=== PATIENT | female | born 1985 | race Caucasian/White ===

== ENCOUNTER 2017-03-28 08:21 | Inpatient (IN) | payer MEDICAID ==
[~2017-03-28] VITALS: Ht 157.5 cm; Wt 81.9 kg
[2017-03-28] MEDS ORDERED: LACTATED RINGERS 1,000 ML IV SCH ×2 (10:00→10:36)
[2017-03-28] MEDS ORDERED: OXYTOCIN 30U/ 0.9% NaCL 500ML 500 ML IV SCH (10:36)
[2017-03-28] MEDS ORDERED: NEWBORN KIT ONE (10:49)
[2017-03-28] MEDS ORDERED: SODIUM CITRATE/CITRIC ACID 30 ML UDC ONE (10:49)
[2017-03-28] MEDS ORDERED: METOCLOPRAMIDE 5 MG/ML, 2ML ONE (10:49)
[2017-03-28] MEDS ORDERED: OXYTOCIN 30U/ 0.9% NaCL 500ML 500 ML ONE (10:50)
[2017-03-28] MEDS ORDERED: LACTATED RINGERS 1,000 ML IVBOLUS ONE (11:00)
[2017-03-28] MEDS ORDERED: SODIUM CITRATE/CITRIC ACID 30 ML UDC PO ONE (11:00)
[2017-03-28] MEDS ORDERED: PLEASE ENTER HEIGHT AND WEIGHT MC SCH (11:00)
[2017-03-28] MEDS ORDERED: PLEASE ENTER ALLERGIES MC SCH ×2 (11:00)
[2017-03-28] MEDS ORDERED: METOCLOPRAMIDE 5 MG/ML, 2ML IV ONE (11:00)
[2017-03-28 11:07] LABS: HEMATOCRIT 37.4 % (34.6-47.8); HEMOGLOBIN 12.4 g/dL (11.7-16.4); WHITE BLOOD COUNT 10.9 x10^3/uL (3.4-10)
[2017-03-28 11:29] LABS: DAU SCREEN DISCLAIMER
[2017-03-28] MEDS ORDERED: HYDROmorphone 2 MG/ML, 1ML ONE (11:41)
[2017-03-28] MEDS ORDERED: CEFAZOLIN 1,000 MG ONE (11:41)
[2017-03-28] MEDS ORDERED: OXYTOCIN 10 UNITS/ML, 1ML ONE (11:41)
[2017-03-28] MEDS ORDERED: ONDANSETRON 2MG/ML, 2ML ONE ×2 (11:41→16:08)
[2017-03-28] MEDS ORDERED: FENTANYL PF 100 MCG/2ML ONE (11:41)
[2017-03-28] MEDS ORDERED: EPHEDRINE 50 MG/ML, 1ML ONE (12:29)
[2017-03-28] MEDS ORDERED: KETOROLAC 30 MG/1 ML ONE (13:23)
[2017-03-28] MEDS ORDERED: KETOROLAC 30 MG/1 ML IVPush ONE (14:00)
[2017-03-28] MEDS ORDERED: HYDROmorphone 1 MG/ML, 1ML ONE (14:11)
[2017-03-28] MEDS: HYDROmorphone 1 MG/ML, 1ML IV PRN ×2 (14:15→14:45)
[2017-03-28 15:45] VITALS: BP 123/71
[2017-03-28] MEDS: OXYTOCIN 30U/ 0.9% NaCL 500ML 500 ML IV SCH (15:51)
[2017-03-28] MEDS: LACTATED RINGERS 1,000 ML IV SCH ×3 (15:51→23:51)
[2017-03-28] MEDS ORDERED: IBUPROFEN 600 MG TABLET PO PRN (16:00)
[2017-03-28] MEDS ORDERED: MEPERIDINE/PF 25MG/0.5ML IM PRN (16:00)
[2017-03-28] MEDS ORDERED: MISOPROSTOL 200 MCG TABLET PR PRN (16:00)
[2017-03-28] MEDS ORDERED: MEPERIDINE/PF 50 MG/ML IM PRN (16:00)
[2017-03-28] MEDS ORDERED: HYDROcodone/APAP 5/325 TABLET PO PRN (16:00)
[2017-03-28] MEDS ORDERED: METOCLOPRAMIDE 5 MG/ML, 2ML IV PRN (16:00)
[2017-03-28] MEDS ORDERED: METHYLERGONOVINE 0.2 MG/ML IM PRN (16:00)
[2017-03-28] MEDS ORDERED: SIMETHICONE 80 MG CHEW TAB PO PRN (16:00)
[2017-03-28] MEDS ORDERED: ACETAMINOPHEN 325 MG TABLET PO PRN (16:00)
[2017-03-28] MEDS: HYDROcodone/APAP 5/325 TABLET PO PRN (16:12)
[2017-03-28] MEDS: ONDANSETRON 2MG/ML, 2ML IV PRN (16:12)
[2017-03-28 19:30] VITALS: BP 122/67
[2017-03-28] MEDS: DOCUSATE 100 MG CAPSULE PO PRN (19:52)
[2017-03-28] MEDS: KETOROLAC 30 MG/1 ML IV SCH (19:53)
[2017-03-28 20:37] LABS: HEMOGLOBIN 10.9 g/dL (11.7-16.4); WHITE BLOOD COUNT 14.5 x10^3/uL (3.4-10)
[2017-03-29 00:45] VITALS: BP 134/79
[2017-03-29] MEDS: KETOROLAC 30 MG/1 ML IV SCH ×4 (01:00→19:50)
[2017-03-29] MEDS: HYDROcodone/APAP 5/325 TABLET PO PRN ×2 (01:17→18:01)
[2017-03-29] MEDS: OXYTOCIN 30U/ 0.9% NaCL 500ML 500 ML IV SCH (01:51)
[2017-03-29] MEDS: LACTATED RINGERS 1,000 ML IV SCH (01:51)
[2017-03-29 07:10] VITALS: BP 133/74
[2017-03-29 11:45] VITALS: BP 128/69
[2017-03-29] MEDS: DOCUSATE 100 MG CAPSULE PO PRN ×2 (12:02→19:50)
[2017-03-29] MEDS: PRENATAL VIT/IRON/FA 1 EACH TABLET PO SCH (12:02)
[2017-03-29 19:45] VITALS: BP 144/87
[2017-03-30] MEDS: ONDANSETRON 2MG/ML, 2ML IV PRN (00:25)
[2017-03-30] MEDS ORDERED: ONDANSETRON ODT 4 MG PO PRN (00:40)
[2017-03-30] MEDS: HYDROcodone/APAP 5/325 TABLET PO PRN ×2 (03:38→09:16)
[2017-03-30 06:50] VITALS: BP 127/68
[2017-03-30] MEDS: PRENATAL VIT/IRON/FA 1 EACH TABLET PO SCH (09:16)
[2017-03-30] MEDS: DOCUSATE 100 MG CAPSULE PO PRN (09:16)
[2017-03-30] MEDS ORDERED: IBUP-1222 PO (09:40)
[2017-03-30] MEDS ORDERED: OXYC-302 PO (09:41)
== END 2017-03-30 14:04 | disposition home or self-care (01) | DRG 766 ==
LOC: LDIP 09:54 → MERGE 09:54 → 2NW 15:10
PROVIDERS: ADMIT Obstetrics & Gynecology; ATTEND Obstetrics & Gynecology
PROC: 10D00Z1 Extraction of Products of Conception, Low, Open Approach (ICD-10-PCS; principal; 2017-03-28)
DX: O34.211 Maternal care for low transverse scar from previous cesarean delivery (principal); Z37.0 Single live birth; Z3A.39 39 weeks gestation of pregnancy
CPT/HCPCS: 36415; 80307; 81001; 85025; 86850; 86900; J0690; J1170; J1885; J2175; J2405; J3010; Q0162; G0479; J2590; J2765; J7120